=== PATIENT | male | born 1970 | race Caucasian/White ===

== ENCOUNTER 2021-12-04 08:09 | Observation (INO) | payer OTHER, SELFPAY ==
[2021-12-04] VITALS (13 sets, daily range): BP systolic 117–145; BP diastolic 76–95; PULSE 64–85; RESP 14–20; TEMP 37.1–40; O2SAT 97–99; BMI 32.8
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
--- NOTE | ~2021-12-04 | CT_ITS ---
EXAMINATION: CT brain wo con DATE: 12/04/2021 08:35 INDICATION: Dizziness. Syncope. TECHNIQUE: Computed tomography (CT) of the head was performed without intravenous contrast. The mA wa s adjusted according to patient size. Iterative reconstruction technique was employed. The dose-lengt h product was 681.00 mGy-cm. COMPARISON: None FINDINGS: There is an old infarct in left occipital lobe. There is no intracranial hemorrhage, acute infarction, or abnormal intracranial mass lesion. The ventricles are normal in size. There are old fr acture deformities of the nasal bones and nasal processes of maxilla. There is mucosal thickening in the paranasal sinuses. There is an old blowout fracture of medial wall of left orbit. There is a left otomastoid effusion with erosions of the ossicles, consistent with chronic otitis media. IMPRESSION: 1. Old infarct in left occipital lobe. 2. Chronic left otitis media. Reviewed, dictated and finalized at location A.
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
--- NOTE | 2021-12-04 08:23 | ECG_ITS ---
Measurements Intervals [place] Rate: 80 P: 18 UT: 194 QRS: 0 QRSD: 93 T: 30 QT: 353 QTc: 407 Interpretive Statements SINUS RHYTHM DELAYED PRECORDIAL R/S TRANSITION BASELINE ARTIFACT- I, III, AVL BORDERLINE ECG NO PREVIOUS ECG AVAILABLE FOR COMPARISON Electronically Signed On 12-04-2021 21:34:26 CDT by Moe Chan D.O.
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
[2021-12-04] MEDS: LACTATED RINGERS 1,000 ML 999 ML IV CONT (08:53)
[2021-12-04 09:01] LABS: Basophils Percent Auto 0.5 % (0.2-1.2); Hematocrit 42.4 % (42.0-52.0); Hemoglobin 14.5 g/dL (14.0-18.0); Immature Granulocyte Absolute 0.02 K/mm3 (0.00-0.031); Immature Granulocyte Percent A 0.5 % (0-0.5); Lymphocytes Absolute Auto 0.73 K/mm3 (0.9-3.2); Lymphocytes Percent Auto 17.6 % (18.3-44.2); Mean Corpuscular HGB Conc 34.2 g/dl (32-36); Mean Corpuscular Hemoglobin 31.9 pg (26-34); Mean Corpuscular Volume 93.2 fl (80-100); Mean Platelet Volume 10.1 fl (7.4-10.4); Monocytes Percent Auto 25.1 % (2.6-8.5); Neutrophils Absolute Auto 2.3 K/mm3 (1.3-6.7); Neutrophils Percent Auto 56.3 % (45.5-73.1); Platelet Count Result 145 k/mm3 (150-375); Red Blood Count 4.55 M/mm3 (4.6-6.20); Red Cell Distribution Width 12.8 % (11.5-14.5); White Blood Count 4.1 K/mm3 (4.5-10.0)
[2021-12-04 09:12] LABS: Alanine Aminotransferase 51 U/L (6-50); Albumin Level 4.4 g/dL (3.5-5.1); Alkaline Phosphatase 57 U/L (38-126); Anion Gap 12 mmol/L (8-16); Aspartate Amino Transferase 53 U/L (17-59); Bilirubin,Total 0.5 mg/dL (0.2-1.3); Blood Urea Nitrogen 14 mg/dL (9-20); Calcium 8.5 mg/dL (8.4-10.2); Carbon Dioxide 22 mmol/L (22-30); Chloride 97 mmol/L (98-107); Estimated CRCL calculation 79 ml/min; Estimated Glomerular Filt Rate > 60; Ethanol < 10 mg/dL (<10); Glucose 124 mg/dL (65-110); Magnesium 1.9 mg/dL (1.6-2.3); Potassium 3.8 mmol/L (3.4-5.0); Sodium 131 mmol/L (137-145)
[2021-12-04 09:22] LABS: Partial Thromboplastin Time 29.1 SECONDS (22.3-36.8)
[2021-12-04 09:23] LABS: Troponin I 0.033 ng/mL (0.000-0.034)
[2021-12-04 09:28] LABS: Appearance Urine Clear (Clear); Bilirubin Urine Negative (Negative); Blood Urine 1+ (Negative); Color Urine Yellow (Yellow); Glucose Urine UA Negative (Negative); Ketones Urine Negative (Negative); Leukocyte Esterase Ur Negative LEU/UL (Negative); Nitrate Urine Negative (Negative); Protein Urine Negative (Negative); Specific Grav Ur 1.025 (1.001-1.035); Urobilinogen Urine 0.2 mg/dL (<2.0)
[2021-12-04 09:31] LABS: D Dimer 1.71 ug/mL (<0.48)
[2021-12-04 09:35] LABS: Hyaline Casts Urine 15-19 /lpf; Mucus Urine Rare /lpf; Squamous Epithelial Cell Urine Rare /hpf (Few); WBC Urine 0-3 /hpf
[2021-12-04 09:38] LABS: Add Urine Microscopic? YES
[2021-12-04 09:41] LABS: Amphetamine Screen Urine Negative (Negative); Barbiturate Screen Urine Negative (Negative); Benzodiazepines Screen Urine Negative (Negative); Cannabinoid Screen Urine Negative (Negative); Cocaine Screen Urine Negative (Negative); Methadone Screen Urine Negative (Negative); Opiate Screen Urine Negative (Negative); Phencyclidine Screen Urine Negative (Negative)
[2021-12-04 10:04] LABS: SARS-CoV-2 RNA PCR Positive
[2021-12-04 12:30] LABS: Troponin I 0.024 ng/mL (0.000-0.034)
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
--- NOTE | 2021-12-04 14:51 | ADMGEN ---
This patient, Kush Head, was admitted to [facility] Surg Room 300-01. Patient/family oriented to hospital policies and general routines including ID bracelet, bed and alarms, visiting hours, pain management, procedures, bathroom and other care routines, personal items, smoking policy, room service/diet, and visiting hours. Information on how to activate the Rapid Response Team has been discussed. Patient/Family are encouraged to report perceived risks to care and to ask questions if they do not understand what they are told or what they should do.
[2021-12-04] MEDS: SODIUM CHLORIDE 0.9% IV 1,000 ML 125 ML IV CONT ×2 (14:59→23:56)
[2021-12-04] MEDS: NICOTINE (*PBKC) 21 MG PATCH 1 PATCH TRANSDERM (15:16)
[2021-12-05] VITALS (15 sets, daily range): BP systolic 114–148; BP diastolic 61–87; PULSE 57–75; RESP 14–15; TEMP 36.6–38.5; O2SAT 96–97
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
[2021-12-05] MEDS: ACETAMINOPHEN 325 MG TABLET 650 MG PO (05:59)
[2021-12-05 07:42] LABS: Anion Gap 12 mmol/L (8-16); Blood Urea Nitrogen 13 mg/dL (9-20); Calcium 7.8 mg/dL (8.4-10.2); Carbon Dioxide 24 mmol/L (22-30); Chloride 104 mmol/L (98-107); Estimated CRCL calculation 104 ml/min; Estimated Glomerular Filt Rate > 60; Glucose 99 mg/dL (65-110); Magnesium 2.2 mg/dL (1.6-2.3); Sodium 140 mmol/L (137-145)
[2021-12-05] MEDS: FAMOTIDINE 20 MG TABLET 40 MG PO (09:04)
[2021-12-05] MEDS: amLODIPine BESYLATE 5 MG TABLET PO (09:04)
[2021-12-05] MEDS: PANTOPRAZOLE 40 MG TABLET PO (09:04)
[2021-12-05] MEDS: NICOTINE (*PBKC) 21 MG PATCH 1 PATCH TRANSDERM (09:04)
[2021-12-05] MEDS: METOPROLOL SUCCINATE EXT REL 50 MG TABCR PO (09:05)
[2021-12-05] MEDS: LOSARTAN POTASSIUM 50 MG TABLET PO (09:05)
[2021-12-05] MEDS: ASPIRIN 81 MG ENTERIC TABLET PO (09:05)
[2021-12-05] MEDS: CLOPIDOGREL BISULFATE 75 MG TABLET PO (09:05)
[2021-12-05] MEDS: hydroCHLOROthiazide 25 MG TABLET PO (09:06)
[2021-12-05] MEDS: SODIUM CHLORIDE 0.9% IV 1,000 ML 125 ML IV CONT (09:07)
[2021-12-05] MEDS: ATORVASTATIN 40 MG TABLET 80 MG PO (09:59)
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
[2021-12-06] VITALS (13 sets, daily range): BP systolic 104–120; BP diastolic 64–90; PULSE 50–87; RESP 14–20; TEMP 35.9–36.8; O2SAT 93–100
[2021-12-06] MEDS: NICOTINE (*PBKC) 21 MG PATCH 1 PATCH TRANSDERM (08:24)
[2021-12-06] MEDS: METOPROLOL SUCCINATE EXT REL 50 MG TABCR PO (08:25)
[2021-12-06] MEDS: hydroCHLOROthiazide 25 MG TABLET PO (08:25)
[2021-12-06] MEDS: LOSARTAN POTASSIUM 50 MG TABLET PO (08:25)
[2021-12-06] MEDS: ASPIRIN 81 MG ENTERIC TABLET PO (08:25)
[2021-12-06] MEDS: amLODIPine BESYLATE 5 MG TABLET PO (08:25)
[2021-12-06] MEDS: ATORVASTATIN 40 MG TABLET 80 MG PO (08:25)
[2021-12-06] MEDS: PANTOPRAZOLE 40 MG TABLET PO (08:26)
[2021-12-06] MEDS: FAMOTIDINE 20 MG TABLET 40 MG PO (08:26)
[2021-12-06] MEDS: CLOPIDOGREL BISULFATE 75 MG TABLET PO (08:26)
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
== END 2021-12-06 18:28 | disposition home or self-care (01) ==
LOC: ANHED 08:55 → ANH3MEDSUR 14:17
PROVIDERS: Physician Assistant; Admitting Provider Internal Medicine; Emergency Provider General Practice; Visit Provider Internal Medicine
DX: R55 Syncope and collapse (principal); U07.1 COVID-19; F17.210 Nicotine dependence, cigarettes, uncomplicated; I10 Essential (primary) hypertension; R42 Dizziness and giddiness; H66.92 Otitis media, unspecified, left ear; M25.551 Pain in right hip; V69.88XA Occupant (driver) (passenger) of heavy transport vehicle injured in other specified transport accidents, initial encounter; E78.5 Hyperlipidemia, unspecified; Y92.410 Unspecified street and highway as the place of occurrence of the external cause; Z28.310 Unvaccinated for COVID-19; Z86.73 Personal history of transient ischemic attack (TIA), and cerebral infarction without residual deficits; Z79.82 Long term (current) use of aspirin; Z79.02 Long term (current) use of antithrombotics/antiplatelets; Z79.899 Other long term (current) drug therapy; Z82.49 Family history of ischemic heart disease and other diseases of the circulatory system
CPT/HCPCS: 36415; 70450; 71045; 71275; 73502; 80048; 80053; 80307; 81001; 83735; 84484; 85025; 85380; 85610; 85730; 93005; 96360; 96361; 96374; 97161; 97165; 99285; A9270; C9803; G0378; J0131; J7030; J7120; Q9967; U0003; U0005